=== PATIENT | female | born 1980 | race Caucasian/White ===

== ENCOUNTER 2016-10-27 07:30 | Inpatient (IN) | payer BC ==
[~2016-10-27] VITALS: Ht 172.7 cm; Wt 92.7 kg
[2016-10-27] VITALS (24 sets, daily range): BP systolic 111–171; BP diastolic 59–103
[~2016-10-27 07:30] MED LIST: CAMILA0.35 MG PO; FOLIC ACID1 MG PO; PRENATAL TABLE1 EAC3 PO
[2016-10-27] MEDS ORDERED: ASPIR 8181 M1 PO (08:14)
[2016-10-27 09:37] LABS: EOSINOPHIL (%) 0.5 % (0-5); EOSINOPHIL COUNT 0.1 K/uL (0-0.3); HEMATOCRIT 35.2 % (36.0-46.0); IMMATURE GRANULOCYTE (%) 0.8 % (0.0-0.7); IMMATURE GRANULOCYTE COUNT 0.1 K/uL; LYMPHOCYTE COUNT 2.5 K/uL (1.0-2.8); MCH 27.2 PG (29.0-34.0); MCV 82.6 FL (83-99); MEAN PLAT.VOLUME 11.8 uM^3 (9.5-12.4); MONOCYTE (%) 7.8 % (3-12); NEUTROPHIL COUNT 9.2 K/uL (1.8-6.4); PLATELET COUNT 132 K/uL (156-360); RBC DIS.WIDTH-CV 14.5 % (11.8-14.6); RBC DIS.WIDTH-SD 43.3 % (39-53); RED BLOOD COUNT 4.26 M/uL (3.80-5.20); WHITE BLOOD COUNT 12.9 K/uL (4.1-10.2)
[2016-10-27 09:56] LABS: PTT 24.3 (25-32)
[2016-10-27 10:05] LABS: ALKALINE PHOSPHATASE 144 IU/L (3-129); ANION GAP 8 MEQ/L (2-14); CHLORIDE 109 MEQ/L (99-109); GFR ESTIMATE (CALCULATED) > 59 mL/min/; GLUCOSE 76 mg/dL (70-99); LACTATE DEHYDROGENASE 160 IU/L (20-246); POTASSIUM 4.2 MEQ/L (3.7-5.4); SAMPLE HEMOLYSIS CHECK 0; SAMPLE ICTERIC CHECK 0; SAMPLE LIPEMIA CHECK 0; SODIUM 137 MEQ/L (136-147); TOTAL BILIRUBIN 0.4 MG/DL (0.0-1.0); UREA NITROGEN (BUN) 10 mg/dL (9-23); URIC ACID 5.4 mg/dL (3.1-9.2)
[2016-10-27 10:19] LABS: FIBRINOGEN 398 MG/DL (160-450)
[2016-10-27 10:58] LABS: UR CREATININE CONCENTRATION 80.6 MG/DL
[2016-10-28 02:36] VITALS: BP 134/91
[2016-10-28 07:23] LABS: EOSINOPHIL (%) 0.2 % (0-5); HEMATOCRIT 31.7 % (36.0-46.0); IMMATURE GRANULOCYTE (%) 0.7 % (0.0-0.7); IMMATURE GRANULOCYTE COUNT 0.1 K/uL; LYMPHOCYTE COUNT 2.8 K/uL (1.0-2.8); MCH 27.9 PG (29.0-34.0); MCHC 33.1 G/DL (30.0-36.0); MCV 84.3 FL (83-99); MEAN PLAT.VOLUME 11.9 uM^3 (9.5-12.4); MONOCYTE COUNT 0.9 K/uL (0-0.8); NEUTROPHIL (%) 77.9 % (45-76); NEUTROPHIL COUNT 13.4 K/uL (1.8-6.4); PLATELET COUNT 123 K/uL (156-360); RBC DIS.WIDTH-CV 14.6 % (11.8-14.6); RBC DIS.WIDTH-SD 44.7 % (39-53); RED BLOOD COUNT 3.76 M/uL (3.80-5.20)
[2016-10-28 07:30] LABS: WHITE BLOOD COUNT 17.2 K/uL (4.1-10.2)
[2016-10-28 07:33] VITALS: BP 119/73
[2016-10-28 14:41] VITALS: BP 126/83
[2016-10-28 19:20] VITALS: BP 128/84
[2016-10-28 22:25] VITALS: BP 143/95
[2016-10-28 23:08] VITALS: BP 127/76
[2016-10-29 03:00] VITALS: BP 133/91
[2016-10-29 08:32] VITALS: BP 120/72
[2016-10-29 11:34] VITALS: BP 135/78
== END 2016-10-29 12:50 | disposition home or self-care (01) | DRG 774 ==
LOC: LDRP-OP 07:30 → 2WEST 07:31 → LDRP-OP 19:24 → 2WEST 10-29 12:50 → LDRP-OP 11-30 14:13
PROVIDERS: Advanced Practice Midwife
PROC: 10907ZC Drainage of Amniotic Fluid, Therapeutic from Products of Conception, Via Natural or Artificial Opening (ICD-10-PCS; principal; 2016-10-27)
PROC: 10E0XZZ Delivery of Products of Conception, External Approach (ICD-10-PCS; principal; 2016-10-27)
PROC: 3E0P7GC Introduction of Other Therapeutic Substance into Female Reproductive, Via Natural or Artificial Opening (ICD-10-PCS; principal; 2016-10-27)
PROC: 3E0R3CZ (ICD-10-PCS; principal; 2016-10-27)
PROC: 00HU33Z Insertion of Infusion Device into Spinal Canal, Percutaneous Approach (ICD-10-PCS; principal; 2016-10-27)
DX: O13.4 Gestational [pregnancy-induced] hypertension without significant proteinuria, complicating childbirth (principal); O15.1 Eclampsia complicating labor; E66.9 Obesity, unspecified; O24.420 Gestational diabetes mellitus in childbirth, diet controlled; O99.214 Obesity complicating childbirth; Z68.30 Body mass index [BMI] 30.0-30.9, adult; Z37.0 Single live birth; Z3A.39 39 weeks gestation of pregnancy
CPT/HCPCS: 80053; 82570; 83615; 84156; 84550; 85025; 85384; 85610; 85730; C1755; J3010; J7120

== ENCOUNTER 2017-05-24 15:02 | Emergency (ER) | payer OTHER, BC ==
[~2017-05-24] VITALS: Ht 172.7 cm; Wt 79.6 kg
[~2017-05-24 15:02] MED LIST changes: +ASPIR 8181 M1 PO
[2017-05-24] MEDS ORDERED: ANAPROX DS550 M1 PO (17:18)
[2017-05-24 17:44] VITALS: BP 146/101
== END 2017-05-24 17:52 | disposition home or self-care (01) ==
LOC: EME 15:02
DX: S20.219A Contusion of unspecified front wall of thorax, initial encounter (principal); S09.90XA Unspecified injury of head, initial encounter; M54.2 Cervicalgia; V49.40XA Driver injured in collision with unspecified motor vehicles in traffic accident, initial encounter; F17.200 Nicotine dependence, unspecified, uncomplicated
CPT/HCPCS: 70450; 71010; 72125; 99281; 99283